=== PATIENT | male | born 1980 | race Caucasian/White ===

== ENCOUNTER 2018-08-02 19:53 | Observation (INO) ==
[2018-08-02] MEDS ORDERED: Ondansetron 4 MG/2 ML VIAL IVP ONE ×2 (20:30→22:31)
[2018-08-02] MEDS ORDERED: Isovue-370 500 ML BOTTLE IVP ONE (20:30)
[2018-08-02] MEDS ORDERED: Ketorolac 30 MG/ML VIAL IVP ONE (20:30)
[2018-08-02] MEDS ORDERED: 0.9 % Sodium Chloride 1,000 ML IVC ONE ×2 (20:30→22:31)
[2018-08-02 20:54] LABS: Basophils % 0.2 %; Eosinophils # 0.1 K/mcL (0.0-0.6); Eosinophils % 0.6 %; Hematocrit 49.1 % (37.5-50.1); Hemoglobin 16.2 g/dL (12.9-16.9); Immature Granulocytes % 0.2 % (0-4); Lymphocytes # 1.4 K/mcL (0.6-4.6); Lymphocytes % 16.7 %; Mean Corpuscular Hemoglobin 28.8 pg (28.0-33.3); Mean Corpuscular Volume 87.4 fL (83.0-100.0); Mean Platelet Volume 8.9 fL (9.4-12.4); Monocytes # 0.9 K/mcL (0.0-1.3); Monocytes % 10.8 %; Neutrophils # 5.8 K/mcL (1.6-8.9); Platelet Count 287 K/mcL (140-400); Red Blood Count 5.62 M/mcL (4.19-5.50); Red Cell Distribution Width 13.3 % (11.5-14.5); Segmented Neutrophils % 71.5 %
--- NOTE | 2018-08-02 20:58 | Emergency Department Note ---
Disposition Clinical Impression: Abdominal pain Qualifiers: Abdominal location: periumbilical Qualified Code(s): R10.33 - Periumbilical pain Disposition: Admitted As Inpatient Condition: Fair Forms: ED Satisfaction Letter, Work/School Release Abdominal Pain HPI - General Chief Complaint: ED General Medical Stated Complaint: body aches x3 days Time Seen by Provider: 08/02/18 20:18 Source: patient Mode of arrival: private vehicle Limitations: no limitations Nursing Notes Reviewed: Yes Vital Signs Reviewed: Yes - History of Present Illness Pt Subjective Complaint: abdominal pain, other (fever, achey all over, no appetite) Onset (ago): day(s) (3) Consistency: constant, Worsening Location: periumbilical Pain Severity: moderate Pain Scale: 8 Quality: cramping, aching, sharp Radiation: none Migration to: other (sometimes into back) Improves with: nothing Worsens with: eating Context: other (fever and body aches 3 days ago, abd pain began day 2. Fever and aches continue. No appetite. ) Associated symptoms: Reports: fever, chills, anorexia. Denies: nausea, vomiting, diarrhea, constipation, dysuria, hematemesis, hematochezia, melena, hematuria, syncope Treatments prior to arrival: none - Related Data Home Medications Medication Instructions Recorded Confirmed No Known Home Drugs 08/02/18 08/02/18 Allergies Allergy/AdvReac Type Severity Reaction Status Date / Time No Known Allergies Allergy Verified 08/02/18 19:56 All systems ED: reviewed and negative except as stated. Review of Systems: As Per HPI Constitutional: Denies: fever, chills, weakness, weight change, night sweats Eyes: Denies: eye pain, eye discharge, vision change ENT ED: Denies: ear pain, throat pain, congestion, dysphagia Cardiovascular: Denies: chest pain, palpitations, dyspnea on exertion, orthopnea Respiratory: Denies: cough, dyspnea, wheezes Gastrointestinal: Reports: as per HPI, abdominal pain. Denies: nausea, vomiting, diarrhea, constipation, hematemesis, melena, hematochezia Genitourinary: Denies: urgency, dysuria, frequency, hematuria, discharge, testicular pain Musculoskeletal: Reports: as per HPI, back pain. Denies: neck pain, joint swelling, arthralgia, myalgia Integumentary: Denies: rash, lesions Neurological: Denies: headache, weakness, numbness, paresthesias, confusion, vertigo Hematological/Lymphatic: Denies: easy bleeding, easy bruising, lymphadenopathy Abdominal Pain PMH - Past Medical History Medical history: Reports: no medical history Male Surgical History: Reports: non-contributory, other Psychiatric history: Reports: no psych history - Social History Smoking status: Current every day smoker Alcohol use: Reports: none Drug use: Reports: none Physical Exam - General Limitations: no limitations General appearance: alert, in no apparent distress - Head Head exam: atraumatic, normocephalic, normal inspection - Eye Eye exam: Present: normal appearance, PERRL. Absent: scleral icterus, conjunctival injection, periorbital swelling - ENT ENT exam: mucous membranes dry - Neck Neck exam: Present: normal inspection, full ROM, trachea midline. Absent: tenderness, meningismus, lymphadenopathy - Chest Chest inspection: Present: normal inspection - Respiratory Respiratory exam: Present: normal lung sounds bilaterally. Absent: respiratory distress, wheezes, stridor, accessory muscle use - Cardiovascular Cardiovascular exam: Present: regular rate, normal rhythm, normal heart sounds - Abdominal Exam Abdominal exam: Present: soft, tenderness, rebound, normal bowel sounds, tenderness at McBurney's Point. Absent: distention, guarding, rigidity, organomegaly, Menjivar's sign, Rovsing's sign, ascites, mass, bruit, pulsatile mass, hernia Abdominal tenderness: Present: RLQ (and periumbilical) - Extremities Exam Extremities exam: Present: normal inspection, normal capillary refill - Neurological Exam Neurological exam: Present: alert, oriented X3, CN II-XII intact, normal gait - Psychiatric Psychiatric exam: Present: normal affect, normal mood - Skin Skin exam: Present: warm, dry, intact, normal color Course Course Narrative: Patient to ED for eval of fever, malaise, abdominal pain and anorexia. Symptoms times 3 days. No urinary or bowel complaints. No recent travel or known ill contacts. On exam patient appears uncomfortable but non-toxic. Vitals are normal. Airway and lungs clear, heart sounds normal - no murmur. Abd is soft but tender with guarding in the RLQ. Bowel sounds normal. LAbs, fluids, meds and CT ordered. Labs normal. Pain better and patient is sleeping. Awakens to verbal stimulus. CT looks abnormal. Waiting for the read. Case discussed with Dr. Ballard. She has seen the CT and states that she will admit the patient. Pain is now back. Additional meds ordered. Case discussed with Dr. Galicia. She has had face to face time with the patient and agrees with the assessment and plan. - Consultations Consultation #1: case discussed with Radiologist. He called to see if the patient has had an appendectomy. (Patient has not had any surgeries) He states that the CT shows a lot of free fluid and a lot of fluid filled loops of bowel. As we were discussing the patient's presentation, he states that he is now able to see the appendix and it looks normal. Time: 22:00 Consultation #2: Surgicalist paged Time: 22:10 Vital Signs Temperature 97.7 F 08/02/18 19:56 Pulse Rate 88 08/02/18 19:56 Respiratory Rate 16 08/02/18 19:56 Blood Pressure 116/75 08/02/18 19:56 O2 Sat by Pulse Oximetry 97 08/02/18 19:56 Temperature 98.7 F 08/02/18 20:59 Pulse Rate 80 08/02/18 20:59 Respiratory Rate 18 08/02/18 20:59 Blood Pressure 96/57 08/02/18 20:59 O2 Sat by Pulse Oximetry 98 08/02/18 20:59 Oxygen Delivery Oxygen Delivery Room Air Abdominal Pain - Medical Records Medical records reviewed: Yes I reviewed the patient's medical records. - Lab Data Lab results reviewed: Yes I reviewed the patient's lab results. Lab results narrative: Laboratory Last Values WBC 8.2 K/mcL (4.3-11.1) 08/02/18 20:30 RBC 5.62 M/mcL (4.19-5.50) H 08/02/18 20:30 Hgb 16.2 g/dL (12.9-16.9) 08/02/18 20:30 Hct 49.1 % (37.5-50.1) 08/02/18 20:30 MCV 87.4 fL (83.0-100.0) 08/02/18 20:30 MCH 28.8 pg (28.0-33.3) 08/02/18 20:30 MCHC 33.0 g/dL (31.6-35.5) 08/02/18 20:30 RDW 13.3 % (11.5-14.5) 08/02/18 20:30 Plt Count 287 K/mcL (140-400) 08/02/18 20:30 MPV 8.9 fL (9.4-12.4) L 08/02/18 20:30 Immature Gran % 0.2 % (0-4) 08/02/18 20: Seg Neutrophils % 71.5 % 08/02/18 20:30 Lymphocytes % 16.7 % 08/02/18 20: Monocytes % 10.8 % 08/02/18 20:30 Eosinophils % 0.6 % 08/02/18 20: Basophils % 0.2 % 08/02/18 20:30 Neutrophils # 5.8 K/mcL (1.6-8.9) 08/02/18 20:30 Lymphocytes # 1.4 K/mcL (0.6-4.6) 08/02/18 20: Monocytes # 0.9 K/mcL (0.0-1.3) 08/02/18 20: Eosinophils # 0.1 K/mcL (0.0-0.6) 08/02/18 20: Basophils # 0.0 K/mcL (0.0-0.2) 08/02/18 20:30 Sodium 133 mEq/L (136-145) L 08/02/18 20:30 Potassium 3.7 mEq/L (3.5-5.1) 08/02/18 20:30 Chloride 100 mEq/L (98-107) 08/02/18 20: Carbon Dioxide 28 mEq/L (23-29) 08/02/18 20:30 BUN 16 mg/dL (6-20) 08/02/18 20:30 Creatinine 0.93 mg/dL (0.70-1.30) 08/02/18 20:30 Est GFR ( Amer) > 60 (> 60) 08/02/18 20:30 Est GFR (Non-Af Amer) > 60 (> 60) 08/02/18 20:30 BUN/Creatinine Ratio 17 (6-26) 08/02/18 20: Glucose 109 mg/dL (70-105) H 08/02/18 20:30 Calculated Osmolality 278 (280-300) L 08/02/18 20:30 Lactic Acid 0.9 mmol/L (0.5-2.2) 08/02/18 20:38 Calcium 8.8 mg/dL (8.6-10.3) 08/02/18 20:30 Total Bilirubin 0.4 mg/dL (0.3-1.0) 08/02/18 20:30 Direct Bilirubin 0.1 mg/dL (0.0-0.2) 08/02/18 20:30 Indirect Bilirubin 0.3 mg/dL (0.0-1.2) 08/02/18 20:30 AST 24 Units/L (13-39) 08/02/18 20:30 ALT 32 Units/L (7-52) 08/02/18 20:30 Alkaline Phosphatase 57 Units/L (34-104) 08/02/18 20:30 Serum Total Protein 7.0 g/dL (6.4-8.9) 08/02/18 20:30 Albumin 3.9 g/dL (3.5-5.7) 08/02/18 20:30 Globulin 3.1 g/dL (2.4-3.5) 08/02/18 20:30 Albumin/Globulin Ratio 1.3 (1.1-2.2) 08/02/18 20:30 Lipase 25 Units/L (11-82) 08/02/18 20:30 Urine Color Yellow (Yellow) 08/02/18 21:00 Urine Clarity Clear (Clear) 08/02/18 21:00 Urine pH 5.5 pH Units (5.0-8.0) 08/02/18 21:00 Ur Specific [place] 1.029 (1.010-1.025) H 08/02/18 21:00 Urine Protein 30 mg/dL (Neg-Trace) H 08/02/18 21:00 Urine Glucose (UA) Normal mg/dL (Normal) 08/02/18 21:00 Urine Ketones Negative mg/dL (Negative) 08/02/18 21:00 Urine Blood Negative (Negative) 08/02/18 21:00 Urine Nitrite Negative (Negative) 08/02/18 21:00 Urine Bilirubin Small (Negative) H 08/02/18 21:00 Urine Urobilinogen Normal mg/dL (Normal) 08/02/18 21:00 Ur Leukocyte Esterase Negative (Negative) 08/02/18 21:00 Urine Microscopic WBC 0-3 per hpf (0-3) 08/02/18 21:00 Ur Squamous Epith Cells Many per lpf (None-Few) H 08/02/18 21:00 Urine Bacteria Few per hpf (None-Few) 08/02/18 21:00 Hyaline Casts None Seen per lpf (None-Few) 08/02/18 21:00 Urine Mucus Many (Few) H 08/02/18 21:00 Ur Culture Indicated? NO (NO) 08/02/18 21:00 Result diagrams: 08/02/18 20:30 08/02/18 20:30 Lab Results 08/02/18 08/02/18 08/02/18 Range/Units 20:30 20:30 20:38 WBC 8.2 (4.3-11.1) K/mcL RBC 5.62 H (4.19-5.50) M/mcL Hgb 16.2 (12.9-16.9) g/dL Hct 49.1 (37.5-50.1) % MCV 87.4 (83.0-100.0) fL MCH 28.8 (28.0-33.3) pg MCHC 33.0 (31.6-35.5) g/dL RDW 13.3 (11.5-14.5) % Plt Count 287 (140-400) K/mcL MPV 8.9 L (9.4-12.4) fL Immature Gran % 0.2 (0-4) % Seg Neutrophils % 71.5 % Lymphocytes % 16.7 % Monocytes % 10.8 % Eosinophils % 0.6 % Basophils % 0.2 % Neutrophils # 5.8 (1.6-8.9) K/mcL Lymphocytes # 1.4 (0.6-4.6) K/mcL Monocytes # 0.9 (0.0-1.3) K/mcL Eosinophils # 0.1 (0.0-0.6) K/mcL Basophils # 0.0 (0.0-0.2) K/mcL Sodium 133 L (136-145) mEq/L Potassium 3.7 (3.5-5.1) mEq/L Chloride 100 (98-107) mEq/L Carbon Dioxide 28 (23-29) mEq/L BUN 16 (6-20) mg/dL Creatinine 0.93 (0.70-1.30) mg/dL Est GFR ( Amer) > 60 (> 60) Est GFR (Non-Af Amer) > 60 (> 60) BUN/Creatinine Ratio 17 (6-26) Glucose 109 H (70-105) mg/dL Calculated Osmolality 278 L (280-300) Lactic Acid 0.9 (0.5-2.2) mmol/L Calcium 8.8 (8.6-10.3) mg/dL Total Bilirubin 0.4 (0.3-1.0) mg/dL Direct Bilirubin 0.1 (0.0-0.2) mg/dL Indirect Bilirubin 0.3 (0.0-1.2) mg/dL AST 24 (13-39) Units/L ALT 32 (7-52) Units/L Alkaline Phosphatase 57 (34-104) Units/L Serum Total Protein 7.0 (6.4-8.9) g/dL Albumin 3.9 (3.5-5.7) g/dL Globulin 3.1 (2.4-3.5) g/dL Albumin/Globulin Ratio 1.3 (1.1-2.2) Lipase 25 (11-82) Units/L Urine Color (Yellow) Urine Clarity (Clear) Urine pH (5.0-8.0) pH Units Ur Specific [place] (1.010-1.025) Urine Protein (Neg-Trace) mg/dL Urine Glucose (UA) (Normal) mg/dL Urine Ketones (Negative) mg/dL Urine Blood (Negative) Urine Nitrite (Negative) Urine Bilirubin (Negative) Urine Urobilinogen (Normal) mg/dL Ur Leukocyte Esterase (Negative) Urine Microscopic WBC (0-3) per hpf Ur Squamous Epith Cells (None-Few) per lpf Urine Bacteria (None-Few) per hpf Hyaline Casts (None-Few) per lpf Urine Mucus (Few) Ur Culture Indicated? (NO) 08/02/18 Range/Units 21:00 WBC (4.3-11.1) K/mcL RBC (4.19-5.50) M/mcL Hgb (12.9-16.9) g/dL Hct (37.5-50.1) % MCV (83.0-100.0) fL MCH (28.0-33.3) pg MCHC (31.6-35.5) g/dL RDW (11.5-14.5) % Plt Count (140-400) K/mcL MPV (9.4-12.4) fL Immature Gran % (0-4) % Seg Neutrophils % % Lymphocytes % % Monocytes % % Eosinophils % % Basophils % % Neutrophils # (1.6-8.9) K/mcL Lymphocytes # (0.6-4.6) K/mcL Monocytes # (0.0-1.3) K/mcL Eosinophils # (0.0-0.6) K/mcL Basophils # (0.0-0.2) K/mcL Sodium (136-145) mEq/L Potassium (3.5-5.1) mEq/L Chloride (98-107) mEq/L Carbon Dioxide (23-29) mEq/L BUN (6-20) mg/dL Creatinine (0.70-1.30) mg/dL Est GFR ( Amer) (> 60) Est GFR (Non-Af Amer) (> 60) BUN/Creatinine Ratio (6-26) Glucose (70-105) mg/dL Calculated Osmolality (280-300) Lactic Acid (0.5-2.2) mmol/L Calcium (8.6-10.3) mg/dL Total Bilirubin (0.3-1.0) mg/dL Direct Bilirubin (0.0-0.2) mg/dL Indirect Bilirubin (0.0-1.2) mg/dL AST (13-39) Units/L ALT (7-52) Units/L Alkaline Phosphatase (34-104) Units/L Serum Total Protein (6.4-8.9) g/dL Albumin (3.5-5.7) g/dL Globulin (2.4-3.5) g/dL Albumin/Globulin Ratio (1.1-2.2) Lipase (11-82) Units/L Urine Color Yellow (Yellow) Urine Clarity Clear (Clear) Urine pH 5.5 (5.0-8.0) pH Units Ur Specific [place] 1.029 H (1.010-1.025) Urine Protein 30 H (Neg-Trace) mg/dL Urine Glucose (UA) Normal (Normal) mg/dL Urine Ketones Negative (Negative) mg/dL Urine Blood Negative (Negative) Urine Nitrite Negative (Negative) Urine Bilirubin Small H (Negative) Urine Urobilinogen Normal (Normal) mg/dL Ur Leukocyte Esterase Negative (Negative) Urine Microscopic WBC 0-3 (0-3) per hpf Ur Squamous Epith Cells Many H (None-Few) per lpf Urine Bacteria Few (None-Few) per hpf Hyaline Casts None Seen (None-Few) per lpf Urine Mucus Many H (Few) Ur Culture Indicated? NO (NO) - Radiology Data Radiology results reviewed: Yes I reviewed the patient's radiology results. Abdomen/Pelvis CT 08/02/18 20:30 IMPRESSION: 1. Diffuse fluid distention of small bowel throughout the abdomen. Findings may reflect a gastroenteritis, correlate for signs or symptoms. Early partial small-bowel obstruction cannot be entirely excluded. 2. Mild perihepatic ascites and small amount of free fluid noted in the pelvis, possibly reactive in nature. Correlate with liver function testing. 3. The appendix is identified and appears normal in caliber without evidence of significant periappendiceal inflammatory change. Please see body of report for details. 4. Nonspecific subcentimeter mesenteric lymph nodes, likely reactive in nature. Results were called by Dr. Qamar Reyna to Jessy Montalvo on 08/02/2018 at 22:07. D/ / Qamar Reyna / Qamar Reyna Interpreting Provider: Qamar Reyna
[2018-08-02 21:08] LABS: Alanine Aminotransferase 32 Units/L (7-52); Albumin 3.9 g/dL (3.5-5.7); Albumin/Globulin Ratio 1.3 (1.1-2.2); Alkaline Phosphatase 57 Units/L (34-104); Aspartate Amino Transferase 24 Units/L (13-39); BUN/Creatinine Ratio 17 (6-26); Bilirubin,Direct 0.1 mg/dL (0.0-0.2); Bilirubin,Indirect 0.3 mg/dL (0.0-1.2); Bilirubin,Total 0.4 mg/dL (0.3-1.0); Blood Urea Nitrogen 16 mg/dL (6-20); Calcium 8.8 mg/dL (8.6-10.3); Carbon Dioxide 28 mEq/L (23-29); Chloride 100 mEq/L (98-107); Globulin 3.1 g/dL (2.4-3.5); Glucose 109 mg/dL (70-105); Lipase 25 Units/L (11-82); Osmolality,Calculated 278 (280-300); Potassium 3.7 mEq/L (3.5-5.1); Sodium 133 mEq/L (136-145); eGFR For Non-African Americans > 60 (> 60)
[2018-08-02 21:12] LABS: Bilirubin,Urine Small (Negative); Blood,Urine Negative (Negative); Clarity,Urine Clear (Clear); Color,Urine Yellow (Yellow); Glucose,Urine (UA) Normal (Normal); Ketones,Urine Negative (Negative); Leukocyte Esterase,Urine Negative (Negative); Nitrite,Urine Negative (Negative); PH,Urine 5.5 pH Units (5.0-8.0); Protein,Urine 30 mg/dL (Neg-Trace); Specific Gravity,Urine 1.029 (1.010-1.025); Urobilinogen,Urine Normal (Normal)
[2018-08-02 21:29] LABS: Hyaline Casts,Urine None Seen per lpf (None-Few); Squamous Epithelial Cell,Urine Many per lpf (None-Few); WBC,Urine 0-3 per hpf (0-3)
[2018-08-02 21:30] LABS: Bacteria,Urine Few per hpf (None-Few); Mucus,Urine Many (Few)
[2018-08-02] MEDS ORDERED: Piperacillin/Tazobactam 3.375 GM in 0.9 % Sodium Chloride Mini Bag 100 ML IVPB ONE (22:13)
--- NOTE | 2018-08-02 22:26 | Acute Care Surgery H&P ---
Date of Encounter: 08/02/18 Time of Encounter: 22:25 Assessment and Plan (1) Acute appendicitis with generalized peritonitis Current Visit: Yes Status: Acute The assessment and plan as outlined above was discussed with the patient and/or family members who expressed understanding and agreement. All questions were answered. Recommend diagnostic laparoscopy with appendectomy or possible open surgery. Procedure, risks and benefits of surgery are discussed in great detail. Possible complications include, but, are not limited to bleeding, infection, SB injury, OH, PE/DVT, stroke or . Pt understands and wishes to proceed as advised. IV abx started. NPO. Surgery scheduled. Qualifiers: Qualified Code(s): K35.20 - Acute appendicitis with generalized peritonitis, without abscess History of Present Illness Chief complaint: abdominal pain HPI: Mr. Beckett is a 37 year old male presents to [facility] ED complaining of severe RLQ abdominal pain. He states the pain started around his belly button and has now localized to RLQ. He reports the pain has progressively worsened for 3 days. Reports no appetite. Abd hurts when delmy. +nausea, +/- vomiting. Denies BM. +fever. Past Med Surg Social Fam HX - Past Medical History Medical history: no medical history Psychiatric history: no psych history - Past Surgical History Additional surgical history: right ankle sx - Social History Smoking Status: Current every day smoker Alcohol use: none Drug use: none Medications and Allergies RX: No Known Home Drugs 08/02/18 [History] Allergy/AdvReac Type Severity Reaction Status Date / Time No Known Allergies Allergy Verified 08/02/18 19:56 Review of Systems All systems PM: The remainder of the systems were reviewed and are negative - Constitutional as per HPI, anorexia, chills, fatigue, night sweats, no fever(s), no weakness - EENT Nose, mouth and throat: dry mouth, no dizziness, no nasal congestion, no nasal discharge, no sinus pain, no sinus pressure, no sore throat - Cardiovascular no chest pain, no diaphoresis, no dyspnea, no edema - Respiratory no cough, no dyspnea, no wheezing - Gastrointestinal abdominal pain, cramping, nausea, vomiting, no bloating, no constipation, no diarrhea - Genitourinary flank pain, no dysuria, no urinary frequency - Musculoskeletal back pain - Integumentary dry skin, no pruritus, no rash, no wounds, no jaundice - Neurological no dizziness, no focal weakness, no weakness - Psychiatric no anxiety, no depression - Endocrine fatigue - Hematologic/Lymphatic no easy bleeding, no easy bruising General Surgery Exam Initial Vital Signs Temp Pulse Resp BP Pulse Ox 97.7 F 88 16 116/75 97 08/02/18 19:56 08/02/18 19:56 08/02/18 19:56 08/02/18 19:56 08/02/18 19:56 - General physical appearance moderate distress, severe pain. negative: jaundice - Eyes PERRL, normal ocular movement. negative: icteric - ENT no congestion, dry mucosa. negative: nasal discharge - Neck no masses, no lymphadectomy, no venous distension - Respiratory normal respiratory effort, clear to auscultation - Cardiovascular Cardiovascular exam: Present: RRR. Absent: murmurs - Abdomen Abdomen general surgery: Present: bowel sounds present, distended, tender, guarding, rebound - Genitourinary Present: normal penis with no external lesions - Integumentary Integumentary general surgery: Present: warm and dry - Neurologic Present: CN 2-12 grossly intact - Musculoskeletal Absent: normal posture (knees bent d/t peritonitis) - Psychiatric Psychiatric general surgery: Present: A&Ox3, appropriate Results - Labs 08/02/18 20:30 08/02/18 20:30 Abnormal lab results RBC 5.62 M/mcL (4.19-5.50) H 08/02/18 20:30 MPV 8.9 fL (9.4-12.4) L 08/02/18 20:30 Sodium 133 mEq/L (136-145) L 08/02/18 20:30 Glucose 109 mg/dL (70-105) H 08/02/18 20:30 Calculated Osmolality 278 (280-300) L 08/02/18 20:30 Ur Specific [place] 1.029 (1.010-1.025) H 08/02/18 21:00 Urine Protein 30 mg/dL (Neg-Trace) H 08/02/18 21:00 Urine Bilirubin Small (Negative) H 08/02/18 21:00 Ur Squamous Epith Cells Many per lpf (None-Few) H 08/02/18 21:00 Urine Mucus Many (Few) H 08/02/18 21:00 Diabetes panel 08/02/18 Range/Units 20:30 Sodium 133 L (136-145) mEq/L Potassium 3.7 (3.5-5.1) mEq/L Chloride 100 (98-107) mEq/L Carbon Dioxide 28 (23-29) mEq/L BUN 16 (6-20) mg/dL Creatinine 0.93 (0.70-1.30) mg/dL Glucose 109 H (70-105) mg/dL Calcium 8.8 (8.6-10.3) mg/dL AST 24 (13-39) Units/L ALT 32 (7-52) Units/L Alkaline Phosphatase 57 (34-104) Units/L Albumin 3.9 (3.5-5.7) g/dL Calcium panel 08/02/18 Range/Units 20:30 Calcium 8.8 (8.6-10.3) mg/dL Albumin 3.9 (3.5-5.7) g/dL Pituitary panel 08/02/18 Range/Units 20:30 Sodium 133 L (136-145) mEq/L Potassium 3.7 (3.5-5.1) mEq/L Chloride 100 (98-107) mEq/L Carbon Dioxide 28 (23-29) mEq/L BUN 16 (6-20) mg/dL Creatinine 0.93 (0.70-1.30) mg/dL Glucose 109 H (70-105) mg/dL Calcium 8.8 (8.6-10.3) mg/dL Adrenal panel 08/02/18 Range/Units 20:30 Sodium 133 L (136-145) mEq/L Potassium 3.7 (3.5-5.1) mEq/L Chloride 100 (98-107) mEq/L Carbon Dioxide 28 (23-29) mEq/L BUN 16 (6-20) mg/dL Creatinine 0.93 (0.70-1.30) mg/dL Glucose 109 H (70-105) mg/dL Calcium 8.8 (8.6-10.3) mg/dL Total Bilirubin 0.4 (0.3-1.0) mg/dL AST 24 (13-39) Units/L ALT 32 (7-52) Units/L Alkaline Phosphatase 57 (34-104) Units/L Albumin 3.9 (3.5-5.7) g/dL All other labs normal. - Imaging CT scan - abdomen: image reviewed CT scan - pelvis: image reviewed (large free fluid in abd)
[2018-08-02] MEDS ORDERED: *HR* HYDROmorphone (PF) 1 MG/ML SYRINGE IVP ONE (22:31)
--- NOTE | 2018-08-02 22:44 | Emergency Department Note ---
Disposition Clinical Impression: Abdominal pain Qualifiers: Abdominal location: periumbilical Qualified Code(s): R10.33 - Periumbilical pain Disposition: Admitted As Inpatient Condition: Fair Referrals: NONE,PCP [Primary Care Provider] - Forms: ED Satisfaction Letter, Work/School Release General Adult HPI - General Chief complaint: ED General Medical Stated complaint: body aches x3 days Time Seen by Provider: 08/02/18 20:18 Source: patient Mode of arrival: private vehicle Limitations: no limitations - History of Present Illness Pain Scale: 8 - Related Data Home Medications Medication Instructions Recorded Confirmed No Known Home Drugs 08/02/18 08/02/18 Allergies Allergy/AdvReac Type Severity Reaction Status Date / Time No Known Allergies Allergy Verified 08/02/18 19:56 Constitutional: Denies: fever, chills, weakness, weight change, night sweats Eyes: Denies: eye pain, eye discharge, vision change ENT ED: Denies: ear pain, throat pain, congestion, dysphagia Cardiovascular: Denies: chest pain, palpitations, dyspnea on exertion, orthopnea Respiratory: Denies: cough, dyspnea, wheezes Gastrointestinal: Reports: as per HPI, abdominal pain. Denies: nausea, vomiting, diarrhea, constipation, hematemesis, melena, hematochezia Genitourinary: Denies: urgency, dysuria, frequency, hematuria, discharge, testicular pain Musculoskeletal: Reports: as per HPI, back pain. Denies: neck pain, joint swelling, arthralgia, myalgia Integumentary: Denies: rash, lesions Neurological: Denies: headache, weakness, numbness, paresthesias, confusion, vertigo Hematological/Lymphatic: Denies: easy bleeding, easy bruising, lymphadenopathy Past Medical History - Past Medical History Medical history: Reports: no medical history Psychiatric history: Reports: no psych history - Social History Smoking Status: Current every day smoker Alcohol use: Reports: none Drug use: Reports: none Physical Exam - General Limitations: no limitations General appearance: alert, in no apparent distress Course Vital Signs Temperature 97.7 F 08/02/18 19:56 Pulse Rate 88 08/02/18 19:56 Respiratory Rate 16 08/02/18 19:56 Blood Pressure 116/75 08/02/18 19:56 O2 Sat by Pulse Oximetry 97 08/02/18 19:56 Temperature 99.2 F 08/02/18 22:21 Pulse Rate 73 08/02/18 22:21 Respiratory Rate 18 08/02/18 22:21 Blood Pressure 131/83 08/02/18 22:21 O2 Sat by Pulse Oximetry 97 08/02/18 22:21 Oxygen Delivery Oxygen Delivery Room Air Medical Decision Making - Lab Data Result diagrams: 08/02/18 20:30 08/02/18 20:30 Lab Results 08/02/18 08/02/18 08/02/18 Range/Units 20:30 20:30 20:38 WBC 8.2 (4.3-11.1) K/mcL RBC 5.62 H (4.19-5.50) M/mcL Hgb 16.2 (12.9-16.9) g/dL Hct 49.1 (37.5-50.1) % MCV 87.4 (83.0-100.0) fL MCH 28.8 (28.0-33.3) pg MCHC 33.0 (31.6-35.5) g/dL RDW 13.3 (11.5-14.5) % Plt Count 287 (140-400) K/mcL MPV 8.9 L (9.4-12.4) fL Immature Gran % 0.2 (0-4) % Seg Neutrophils % 71.5 % Lymphocytes % 16.7 % Monocytes % 10.8 % Eosinophils % 0.6 % Basophils % 0.2 % Neutrophils # 5.8 (1.6-8.9) K/mcL Lymphocytes # 1.4 (0.6-4.6) K/mcL Monocytes # 0.9 (0.0-1.3) K/mcL Eosinophils # 0.1 (0.0-0.6) K/mcL Basophils # 0.0 (0.0-0.2) K/mcL Sodium 133 L (136-145) mEq/L Potassium 3.7 (3.5-5.1) mEq/L Chloride 100 (98-107) mEq/L Carbon Dioxide 28 (23-29) mEq/L BUN 16 (6-20) mg/dL Creatinine 0.93 (0.70-1.30) mg/dL Est GFR ( Amer) > 60 (> 60) Est GFR (Non-Af Amer) > 60 (> 60) BUN/Creatinine Ratio 17 (6-26) Glucose 109 H (70-105) mg/dL Calculated Osmolality 278 L (280-300) Lactic Acid 0.9 (0.5-2.2) mmol/L Calcium 8.8 (8.6-10.3) mg/dL Total Bilirubin 0.4 (0.3-1.0) mg/dL Direct Bilirubin 0.1 (0.0-0.2) mg/dL Indirect Bilirubin 0.3 (0.0-1.2) mg/dL AST 24 (13-39) Units/L ALT 32 (7-52) Units/L Alkaline Phosphatase 57 (34-104) Units/L Serum Total Protein 7.0 (6.4-8.9) g/dL Albumin 3.9 (3.5-5.7) g/dL Globulin 3.1 (2.4-3.5) g/dL Albumin/Globulin Ratio 1.3 (1.1-2.2) Lipase 25 (11-82) Units/L Urine Color (Yellow) Urine Clarity (Clear) Urine pH (5.0-8.0) pH Units Ur Specific [place] (1.010-1.025) Urine Protein (Neg-Trace) mg/dL Urine Glucose (UA) (Normal) mg/dL Urine Ketones (Negative) mg/dL Urine Blood (Negative) Urine Nitrite (Negative) Urine Bilirubin (Negative) Urine Urobilinogen (Normal) mg/dL Ur Leukocyte Esterase (Negative) Urine Microscopic WBC (0-3) per hpf Ur Squamous Epith Cells (None-Few) per lpf Urine Bacteria (None-Few) per hpf Hyaline Casts (None-Few) per lpf Urine Mucus (Few) Ur Culture Indicated? (NO) 08/02/18 Range/Units 21:00 WBC (4.3-11.1) K/mcL RBC (4.19-5.50) M/mcL Hgb (12.9-16.9) g/dL Hct (37.5-50.1) % MCV (83.0-100.0) fL MCH (28.0-33.3) pg MCHC (31.6-35.5) g/dL RDW (11.5-14.5) % Plt Count (140-400) K/mcL MPV (9.4-12.4) fL Immature Gran % (0-4) % Seg Neutrophils % % Lymphocytes % % Monocytes % % Eosinophils % % Basophils % % Neutrophils # (1.6-8.9) K/mcL Lymphocytes # (0.6-4.6) K/mcL Monocytes # (0.0-1.3) K/mcL Eosinophils # (0.0-0.6) K/mcL Basophils # (0.0-0.2) K/mcL Sodium (136-145) mEq/L Potassium (3.5-5.1) mEq/L Chloride (98-107) mEq/L Carbon Dioxide (23-29) mEq/L BUN (6-20) mg/dL Creatinine (0.70-1.30) mg/dL Est GFR ( Amer) (> 60) Est GFR (Non-Af Amer) (> 60) BUN/Creatinine Ratio (6-26) Glucose (70-105) mg/dL Calculated Osmolality (280-300) Lactic Acid (0.5-2.2) mmol/L Calcium (8.6-10.3) mg/dL Total Bilirubin (0.3-1.0) mg/dL Direct Bilirubin (0.0-0.2) mg/dL Indirect Bilirubin (0.0-1.2) mg/dL AST (13-39) Units/L ALT (7-52) Units/L Alkaline Phosphatase (34-104) Units/L Serum Total Protein (6.4-8.9) g/dL Albumin (3.5-5.7) g/dL Globulin (2.4-3.5) g/dL Albumin/Globulin Ratio (1.1-2.2) Lipase (11-82) Units/L Urine Color Yellow (Yellow) Urine Clarity Clear (Clear) Urine pH 5.5 (5.0-8.0) pH Units Ur Specific [place] 1.029 H (1.010-1.025) Urine Protein 30 H (Neg-Trace) mg/dL Urine Glucose (UA) Normal (Normal) mg/dL Urine Ketones Negative (Negative) mg/dL Urine Blood Negative (Negative) Urine Nitrite Negative (Negative) Urine Bilirubin Small H (Negative) Urine Urobilinogen Normal (Normal) mg/dL Ur Leukocyte Esterase Negative (Negative) Urine Microscopic WBC 0-3 (0-3) per hpf Ur Squamous Epith Cells Many H (None-Few) per lpf Urine Bacteria Few (None-Few) per hpf Hyaline Casts None Seen (None-Few) per lpf Urine Mucus Many H (Few) Ur Culture Indicated? NO (NO) Attestation Statement - Attestation Attestation: For this encounter, I have reviewed the [employer] or PA documentation, treatment plan, and medical decision making; and I have had face to face time with this patient. Patient to the ED with a chief complaint of fever and abdominal pain. Onset 2 days ago. Patient has a diffusely tender abdomen with guarding. Plan. CT showed gastritis versus an early small bowel instruction. Patient has extremely tender abdomen. IV antibiotics and admit. Surgical consult. Abdomen/Pelvis CT 08/02/18 20:30 IMPRESSION: 1. Diffuse fluid distention of small bowel throughout the abdomen. Findings may reflect a gastroenteritis, correlate for signs or symptoms. Early partial small-bowel obstruction cannot be entirely excluded. 2. Mild perihepatic ascites and small amount of free fluid noted in the pelvis, possibly reactive in nature. Correlate with liver function testing. 3. The appendix is identified and appears normal in caliber without evidence of significant periappendiceal inflammatory change. Please see body of report for details. 4. Nonspecific subcentimeter mesenteric lymph nodes, likely reactive in nature. Results were called by Dr. Qamar Reyna to Jessy Montalvo on 08/02/2018 at 22:07. D/ / Qamar Reyna / Qamar Reyna Interpreting Provider: Qamar Reyna
--- NOTE | 2018-08-03 02:26 | Anesthesia Evaluation PreOp ---
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 HX Other Medical History: Denies Any Significant HX Alcohol Use: none Drug use: none Medications and Allergies No Known Home Drugs 08/02/18 [History] Allergy/AdvReac Type Severity Reaction Status Date / Time No Known Allergies Allergy Verified 08/02/18 19:56 - Meds/Allergy Pre-op Review Medications Reviewed: Yes Allergies Reviewed: Yes Anesthesia Results - Labs 08/02/18 20:30 08/02/18 20:30 Anesthesia Exam Vital Signs/O2 Sat/Glucose, Most Recent Temp Pulse Resp BP Pulse Ox 98.0 F 61 15 111/67 95 08/02/18 23:26 08/02/18 23:26 08/02/18 23:26 08/02/18 23:26 08/02/18 23:26 Weight: 81 KG - BMI 28 NPO (# of Hours): >08/02 - HEENT Mallampati: I (BEARDED) Teeth: Normal Oral Opening: Greater than 3 - Cardiac Rhythm: Regular - Pulmonary Breath Sounds: bilateral Clear Respiratory Effort: Symmetrical Anesthesia Assess/Plan ASA Score: 2, E Anesthetic Plan: General Monitoring Plan: Standard Monitors Recovery Plan: PACU
[2018-08-03] MEDS ORDERED: *HR* HYDROMORPHONE 2 MG/ML VIAL ONE ×2 (03:12→05:00)
[2018-08-03] MEDS ORDERED: *HR* Propofol 200 MG/20 ML VIAL IVP ONE (03:12)
[2018-08-03] MEDS ORDERED: Ondansetron 4 MG/2 ML VIAL ONE (03:16)
[2018-08-03] MEDS ORDERED: Dexamethasone 4 MG/ML VIAL ONE (03:16)
[2018-08-03] MEDS ORDERED: *HR* Succinylcholine 200 MG/10 ML VIAL IVP ONE (03:16)
[2018-08-03] MEDS ORDERED: Lidocaine -MPF 2% 2 ML VIAL ONE (03:16)
[2018-08-03] MEDS ORDERED: *HR* Rocuronium Bromide 50 MG/5 ML VIAL ONE (03:16)
[2018-08-03] MEDS ORDERED: Ondansetron 4 MG/2 ML VIAL IVP ONE (03:40)
[2018-08-03] MEDS ORDERED: *HR* HYDROmorphone (PF) 1 MG/ML SYRINGE IVP PRN (03:40)
[2018-08-03] MEDS ORDERED: *HR* OxyCODONE Immed Rel 5 MG TABLET PO PRN ×2 (03:40→07:39)
[2018-08-03] MEDS ORDERED: Albuterol 2.5 MG/3 ML NEBULIZER IH ONE ×2 (03:40→07:39)
[2018-08-03] MEDS ORDERED: *HR* Meperidine 25 MG/ML SYRINGE IVP PRN (03:40)
[2018-08-03] MEDS ORDERED: *HR* Promethazine 25 MG/ML VIAL IVP PRN (03:40)
[2018-08-03] MEDS ORDERED: Acetaminophen IV 1,000 MG/100 ML INFUS..BTL ONE (03:48)
[2018-08-03] MEDS ORDERED: Ketorolac 30 MG/ML VIAL ONE (04:32)
[2018-08-03] MEDS ORDERED: Neostigmine Methylsulfate 3 MG/3 ML SYRINGE ONE (05:09)
--- NOTE | 2018-08-03 05:24 | Operative Note ---
Date of procedure: 08/03/18 Pre-op diagnosis: acute appendicitis Post-op diagnosis: same Procedure: laparoscopic appendectomy Anesthesia: GETA Surgeon: Megan Sanchez Was there an pharmacy assistant present: No Estimated blood loss (cc): 25 Specimen: appendix Condition: stable Disposition: PACU Procedure in Detail: This 37 year-old was taken to the operating room and placed in supine position. Anterior abdominal wall was prepped and draped in the usual sterile fashion. A 2 cm curvilinear incision is made in the infraumbilical area and subcutaneous tissues are dissected to the anterior rectus fascia. Fascia was grasped with a Mustapha clamp and elevated. The fascia was divided. Posterior rectus fascia and peritoneum were elevated and divided in the same manner. A postoperative inserted and pneumoperitoneum was achieved. The patient is rotated to the left. Under direct visualization after the injection of 0.5% Marcaine a 5 mm port is inserted in suprapubic area and a 10-12 mm port is inserted in the left lower quadrant. Exploration of the intra-abdominal cavity reveals an acutely inflamed appendix. The appendix is grasped at the tip and elevated. The base of the appendix is identified. A rent was made in the mesoappendix near the base and a linear KRIS stapling devices stapled across the appendix at its base. White vascular reload was then used to staple across the mesoappendix. The appendix is removed from the intra-abdominal cavity using an Endo Catch bag. Copious irrigation was carried out in the right pericolic gutter Galan's pouch and pelvis. The fascia at the left lower quadrant port site is closed using 0 Vicryl sutures in an endo-closure device. The pneumoperitoneum was allowed to escape. All ports are removed under direct visualization. Fascia at the infraumbilical incision was closed using 0 Vicryl suture. All skin incisions are closed using 4-0 Monocryl subcuticular stitches. Steri-Strips are placed. Sterile Band-Aids were placed. Patient tolerated procedure well was taken to PACU in good condition.
[2018-08-03] MEDS ORDERED: Ipratropium/Albuterol Neb 3 ML IH ONE (05:41)
[2018-08-03] MEDS ORDERED: Ipratropium/Albuterol Neb 3 ML ONE (05:41)
--- NOTE | 2018-08-03 05:49 | Anesthesia Evaluation Post Op ---
Date of Encounter: 08/03/18 Time of Encounter: 06:03 - Discharge PostOp Status: Transfer Patient to floor (Patient's vital signs have been reviewed. Patient is stable postoperatively and has adequately recovered from anesthesia. Patient is determined to have stable airway patency and respiratory function including respiratory rate and oxygen saturation. Patient has a stable heart rate, blood pressure and adequate hydration. Patients mental status is acceptable. Patients temperature is appropriate. Pain and nausea are adequately controlled.)
[2018-08-03 06:39] VITALS: BP 91/51
[2018-08-03] MEDS ORDERED: Ondansetron 4 MG/2 ML VIAL IVP SCH (07:39)
[2018-08-03] MEDS ORDERED: Ketorolac 15 MG/ML VIAL IVP SCH (07:39)
--- NOTE | 2018-08-03 09:16 | Discharge Summary ---
<Vonnie Wolfe - Last Filed: 08/03/18 09:38> - NOTES TO OUTPATIENT PROVIDER Notes to Outpatient Provider: Please follow up at appointment in [address] Lise Sanchez Orders not resulted at time of discharge: Pending orders 08/03/18 05:11 Surgical Pathology [PTH] Routine Date of Encounter: 08/03/18 Time of Encounter: 09:10 - Discharge Diagnosis (1) Acute appendicitis with generalized peritonitis Priority: Primary Status: Acute Qualifiers: Appendicitis gangrene presence: without gangrene Appendicitis perforation presence: unspecified whether perforation present Appendicitis abscess presence: without abscess Qualified Code(s): K35.20 - Acute appendicitis with generalized peritonitis, without abscess General Surgery Exam Initial Vital Signs Temp Pulse Resp BP Pulse Ox 97.7 F 88 16 116/75 97 08/02/18 19:56 08/02/18 19:56 08/02/18 19:56 08/02/18 19:56 08/02/18 19:56 - General physical appearance well developed, well nourished, no distress, no pain - Eyes PERRL, normal ocular movement - ENT normal mucosa - Respiratory normal expansion, normal respiratory effort, clear to auscultation - Cardiovascular Cardiovascular exam: Present: RRR, regular rhythm, no murmurs/rubs/gallops - Abdomen Abdomen general surgery: Present: bowel sounds present, soft, tender (Mild tenderness to palpation). Absent: distended - Incision Incision: Present: clean and dry, intact - Integumentary Integumentary general surgery: Present: warm and dry, no abnormal pigmentation - Neurologic Present: CN 2-12 grossly intact - Psychiatric Psychiatric general surgery: Present: A&Ox3, appropriate, oriented to person, oriented to place, oriented to time, speech is normal, memory intact - Hospital Course Hospital course: Mr. Beckett is a 37 year old male in. Past medical history who initially presented to [facility] ED complaining of severe right lower quadrant abdominal pain. Had noted that pain began around the bellybutton and localized to the right lower quadrant over the course of 3 days. Also noted decreased appetite, nausea, vomiting. On exam, patient was distended, tender, with guarding and rebound. CT of the abdomen and pelvis showed wall thickening of terminal ileum. Patient was taken to the OR by Dr. Lise Sanchez for laparoscopic appendectomy. Exploration of abdomen revealed an acutely inflamed appendix. Patient tolerated procedure without any difficulty. Seen and examined this morning. He reports no acute pain at this time. He is in no acute distress. Vitals remained hemodynamically stable. We will discharge home today. - Time Spent with Patient Total time spent providing and/or coordinating discharge services: Less than 30 minutes - Discharge Medications Prescriptions: New Docusate [Colace] 100 mg PO BID 14 Days #28 capsule RX: Ibuprofen 800 mg PO Q8H 10 Days #30 tablet OxyCODONE/APAP 5/325 [Percocet 5/325 MG] 1 each PO Q6HR PRN 3 Days #12 tablet PRN Reason: Pain Home Medications: Docusate [Colace] 100 mg PO BID 14 Days #28 capsule 08/03/18 [Rx] OxyCODONE/APAP 5/325 [Percocet 5/325 MG] 1 each PO Q6HR PRN 3 Days #12 tablet 08/03/18 [Rx] RX: Ibuprofen 800 mg PO Q8H 10 Days #30 tablet 08/03/18 [Rx] Allergies/Adverse Reactions: Allergy/AdvReac Type Severity Reaction Status Date / Time No Known Allergies Allergy Verified 08/02/18 19:56 Date of admission: 08/02/18 22:45 Primary care physician: PCP NONE Discharging clinician: Vonnie Wolfe Anticipated date of discharge: 08/03/18 Labs on day of discharge: Labs from last 24 hours 08/02/18 08/02/18 08/02/18 21:00 20:38 20:30 WBC RBC Hgb Hct MCV MCH MCHC RDW Plt Count MPV Immature Gran % Seg Neutrophils % Lymphocytes % Monocytes % Eosinophils % Basophils % Neutrophils # Lymphocytes # Monocytes # Eosinophils # Basophils # Sodium 133 L Potassium 3.7 Chloride 100 Carbon Dioxide 28 BUN 16 Creatinine 0.93 Est GFR ( Amer) > 60 Est GFR (Non-Af Amer) > 60 BUN/Creatinine Ratio 17 Glucose 109 H Calculated Osmolality 278 L Lactic Acid 0.9 Calcium 8.8 Total Bilirubin 0.4 Direct Bilirubin 0.1 Indirect Bilirubin 0.3 AST 24 ALT 32 Alkaline Phosphatase 57 Serum Total Protein 7.0 Albumin 3.9 Globulin 3.1 Albumin/Globulin Ratio 1.3 Lipase 25 Urine Color Yellow Urine Clarity Clear Urine pH 5.5 Ur Specific [place] 1.029 H Urine Protein 30 H Urine Glucose (UA) Normal Urine Ketones Negative Urine Blood Negative Urine Nitrite Negative Urine Bilirubin Small H Urine Urobilinogen Normal Ur Leukocyte Esterase Negative Urine Microscopic WBC 0-3 Ur Squamous Epith Cells Many H Urine Bacteria Few Hyaline Casts None Seen Urine Mucus Many H Ur Culture Indicated? NO 08/02/18 20:30 WBC 8.2 RBC 5.62 H Hgb 16.2 Hct 49.1 MCV 87.4 MCH 28.8 MCHC 33.0 RDW 13.3 Plt Count 287 MPV 8.9 L Immature Gran % 0.2 Seg Neutrophils % 71.5 Lymphocytes % 16.7 Monocytes % 10.8 Eosinophils % 0.6 Basophils % 0.2 Neutrophils # 5.8 Lymphocytes # 1.4 Monocytes # 0.9 Eosinophils # 0.1 Basophils # 0.0 Sodium Potassium Chloride Carbon Dioxide BUN Creatinine Est GFR ( Amer) Est GFR (Non-Af Amer) BUN/Creatinine Ratio Glucose Calculated Osmolality Lactic Acid Calcium Total Bilirubin Direct Bilirubin Indirect Bilirubin AST ALT Alkaline Phosphatase Serum Total Protein Albumin Globulin Albumin/Globulin Ratio Lipase Urine Color Urine Clarity Urine pH Ur Specific [place] Urine Protein Urine Glucose (UA) Urine Ketones Urine Blood Urine Nitrite Urine Bilirubin Urine Urobilinogen Ur Leukocyte Esterase Urine Microscopic WBC Ur Squamous Epith Cells Urine Bacteria Hyaline Casts Urine Mucus Ur Culture Indicated? - Impressions ITS Impressions Abdomen/Pelvis CT 08/02/18 20:30 IMPRESSION: 1. Diffuse fluid distention of small bowel throughout the abdomen. Findings may reflect a gastroenteritis, correlate for signs or symptoms. Early partial small-bowel obstruction cannot be entirely excluded. 2. Mild perihepatic ascites and small amount of free fluid noted in the pelvis, possibly reactive in nature. Correlate with liver function testing. 3. The appendix is identified and appears normal in caliber without evidence of significant periappendiceal inflammatory change. Please see body of report for details. 4. Nonspecific subcentimeter mesenteric lymph nodes, likely reactive in nature. Results were called by Dr. Qamar Reyna to Jessy Montalvo on 08/02/2018 at 22:07. D/ / Qamar Reyna / Qamar Reyna Interpreting Provider: Qamar Reyna - Patient Status Disposition: Home, Self-Care Condition: Good Functional capacity at discharge: independent ambulation Overall status at discharge: patient is progressing back to baseline - Discharge Instructions Instructions: Laparoscopic Appendectomy (DC) Follow Up With: Allen Yan MD [Partnered Physician] - 09/04/18 8:00 am NONE,PCP [Primary Care Provider] - Additional Instructions: General Surgical Discharge Instructions 1. No pushing, pulling, or lifting greater than 15 lbs for 2-4 weeks (depending upon procedure). 2. You may shower beginning today, but no tub baths, soaking, or swimming for 2 weeks. 3. You may resume driving when you are off narcotics and are safe to react in a car. 4. Take ibuprofen every 8 hours for discomfort. If this does not relieve discomfort, you may take the as needed Percocet. Take narcotics as directed. Do not take more narcotics then directed and do not share your narcotics with any other person. Do not drink alcohol while on narcotics. 5. Take stool softeners (Colace) or a water based laxative (Miralax) while taking narcotics. You may hold for loose stools. 6. Report any fevers greater than 100.5F, increase abdominal discomfort, drainage that looks like pus, increased redness or pain at the surgical site, or any vomiting. 7. Report any pain in the calves, shortness of breath, or rapid heartbeat. 8. Follow-up in the office as directed. 9. If you were prescribed antibiotics, do not stop them without talking to your provider. - Diet and Activity Activity: resume usual activities as tolerated Diet: advance to your usual diet <Pedro Weber - Last Filed: 08/03/18 17:10> Orders not resulted at time of discharge: Pending orders 08/03/18 05:11 Surgical Pathology [PTH] Routine Date of Encounter: 08/03/18 General Surgery Exam Initial Vital Signs Temp Pulse Resp BP Pulse Ox 97.7 F 88 16 116/75 97 08/02/18 19:56 08/02/18 19:56 08/02/18 19:56 08/02/18 19:56 08/02/18 19:56 - Hospital Course Hospital course: Mr. Beckett is a 37 year old male - Time Spent with Patient Total time spent providing and/or coordinating discharge services: Date of admission: 08/02/18 22:45 Primary care physician: PCP NONE Labs on day of discharge: Labs from last 24 hours 08/02/18 08/02/18 08/02/18 21:00 20:38 20:30 WBC RBC Hgb Hct MCV MCH MCHC RDW Plt Count MPV Immature Gran % Seg Neutrophils % Lymphocytes % Monocytes % Eosinophils % Basophils % Neutrophils # Lymphocytes # Monocytes # Eosinophils # Basophils # Sodium 133 L Potassium 3.7 Chloride 100 Carbon Dioxide 28 BUN 16 Creatinine 0.93 Est GFR ( Amer) > 60 Est GFR (Non-Af Amer) > 60 BUN/Creatinine Ratio 17 Glucose 109 H Calculated Osmolality 278 L Lactic Acid 0.9 Calcium 8.8 Total Bilirubin 0.4 Direct Bilirubin 0.1 Indirect Bilirubin 0.3 AST 24 ALT 32 Alkaline Phosphatase 57 Serum Total Protein 7.0 Albumin 3.9 Globulin 3.1 Albumin/Globulin Ratio 1.3 Lipase 25 Urine Color Yellow Urine Clarity Clear Urine pH 5.5 Ur Specific [place] 1.029 H Urine Protein 30 H Urine Glucose (UA) Normal Urine Ketones Negative Urine Blood Negative Urine Nitrite Negative Urine Bilirubin Small H Urine Urobilinogen Normal Ur Leukocyte Esterase Negative Urine Microscopic WBC 0-3 Ur Squamous Epith Cells Many H Urine Bacteria Few Hyaline Casts None Seen Urine Mucus Many H Ur Culture Indicated? NO 08/02/18 20:30 WBC 8.2 RBC 5.62 H Hgb 16.2 Hct 49.1 MCV 87.4 MCH 28.8 MCHC 33.0 RDW 13.3 Plt Count 287 MPV 8.9 L Immature Gran % 0.2 Seg Neutrophils % 71.5 Lymphocytes % 16.7 Monocytes % 10.8 Eosinophils % 0.6 Basophils % 0.2 Neutrophils # 5.8 Lymphocytes # 1.4 Monocytes # 0.9 Eosinophils # 0.1 Basophils # 0.0 Sodium Potassium Chloride Carbon Dioxide BUN Creatinine Est GFR ( Amer) Est GFR (Non-Af Amer) BUN/Creatinine Ratio Glucose Calculated Osmolality Lactic Acid Calcium Total Bilirubin Direct Bilirubin Indirect Bilirubin AST ALT Alkaline Phosphatase Serum Total Protein Albumin Globulin Albumin/Globulin Ratio Lipase Urine Color Urine Clarity Urine pH Ur Specific [place] Urine Protein Urine Glucose (UA) Urine Ketones Urine Blood Urine Nitrite Urine Bilirubin Urine Urobilinogen Ur Leukocyte Esterase Urine Microscopic WBC Ur Squamous Epith Cells Urine Bacteria Hyaline Casts Urine Mucus Ur Culture Indicated? - Impressions ITS Impressions Abdomen/Pelvis CT 08/02/18 20:30 IMPRESSION: 1. Diffuse fluid distention of small bowel throughout the abdomen. Findings may reflect a gastroenteritis, correlate for signs or symptoms. Early partial small-bowel obstruction cannot be entirely excluded. 2. Mild perihepatic ascites and small amount of free fluid noted in the pelvis, possibly reactive in nature. Correlate with liver function testing. 3. The appendix is identified and appears normal in caliber without evidence of significant periappendiceal inflammatory change. Please see body of report for details. 4. Nonspecific subcentimeter mesenteric lymph nodes, likely reactive in nature. Results were called by Dr. Qamar Reyna to Jessy Montalvo on 08/02/2018 at 22:07. D/ / Qamar Reyna / Qamar Reyna Interpreting Provider: Qamar Reyna - Attending Attestation patient seen and examined. i have reviewed all labs, imaging, and notes. i agree with the above assessment and plan.
== END 2018-08-03 09:57 | disposition home or self-care (01) ==
LOC: EMEROOARM 19:53 → 3BNU 19:53
PROVIDERS: ADMIT Surgery; ATTEND Surgery

== ENCOUNTER 2018-08-04 16:22 | Inpatient (IN) ==
[2018-08-04] MEDS ORDERED: 0.9 % Sodium Chloride 1,000 ML IVC ONE (16:29)
[2018-08-04] MEDS ORDERED: Isovue-370 500 ML BOTTLE IVP ONE (16:30)
[2018-08-04] MEDS ORDERED: Ondansetron 4 MG/2 ML VIAL IVP ONE (16:31)
[2018-08-04] MEDS ORDERED: *HR* FentaNYL (PF) 100 MCG/2 ML VIAL IVP ONE (16:31)
[2018-08-04] MEDS ORDERED: Ketorolac 15 MG/ML VIAL IVP ONE (16:31)
--- NOTE | 2018-08-04 16:33 | Emergency Department Note ---
Disposition Clinical Impression: Post-op pain, Abdominal pain, SBO (small bowel obstruction), Ileus Disposition: Admitted As Inpatient Condition: Fair General Adult HPI - General Stated complaint: post op complications Time Seen by Provider: 08/04/18 16:23 - Related Data Previous Rx's Medication Instructions Recorded Docusate [Colace] 100 mg PO BID 14 Days #28 capsule 08/03/18 OxyCODONE/APAP 5/325 [Percocet 1 each PO Q6HR PRN 3 Days #12 08/03/18 5/325 MG] tablet RX: Ibuprofen 800 mg PO Q8H 10 Days #30 tablet 08/03/18 Allergies Allergy/AdvReac Type Severity Reaction Status Date / Time No Known Allergies Allergy Verified 08/02/18 19:56 Past Medical History - Past Medical History Medical history: Reports: no medical history Psychiatric history: Reports: no psych history - Social History Smoking Status: Current every day smoker Alcohol use: Reports: none Drug use: Reports: none Course Vital Signs Temperature 99.2 F 08/04/18 16:27 Pulse Rate 79 08/04/18 16:27 Respiratory Rate 18 08/04/18 16:27 Blood Pressure 127/79 08/04/18 16:27 O2 Sat by Pulse Oximetry 98 08/04/18 16:27 Temperature 98.6 F 08/04/18 20:17 Pulse Rate 82 08/04/18 20:17 Respiratory Rate 19 08/04/18 20:17 Blood Pressure 107/66 08/04/18 20:17 O2 Sat by Pulse Oximetry 95 08/04/18 20:17 Oxygen Delivery Oxygen Delivery Room Air Medical Decision Making - Lab Data Result diagrams: 08/04/18 16:45 08/04/18 16:45 Lab Results 08/04/18 08/04/18 08/04/18 Range/Units 16:41 16:45 16:45 WBC 9.8 (4.3-11.1) K/mcL RBC 4.57 (4.19-5.50) M/mcL Hgb 13.1 D (12.9-16.9) g/dL Hct 39.7 (37.5-50.1) % MCV 86.9 (83.0-100.0) fL MCH 28.7 (28.0-33.3) pg MCHC 33.0 (31.6-35.5) g/dL RDW 13.3 (11.5-14.5) % Plt Count 278 (140-400) K/mcL MPV 9.6 (9.4-12.4) fL Immature Gran % 0.4 (0-4) % Seg Neutrophils % 75.4 % Lymphocytes % 14.1 % Monocytes % 9.4 % Eosinophils % 0.5 % Basophils % 0.2 % Neutrophils # 7.4 (1.6-8.9) K/mcL Lymphocytes # 1.4 (0.6-4.6) K/mcL Monocytes # 0.9 (0.0-1.3) K/mcL Eosinophils # 0.1 (0.0-0.6) K/mcL Basophils # 0.0 (0.0-0.2) K/mcL Clumped Platelets Few A (Not Present) Sodium 134 L (136-145) mEq/L Potassium 4.0 (3.5-5.1) mEq/L Chloride 101 (98-107) mEq/L Carbon Dioxide 25 (23-29) mEq/L BUN 10 (6-20) mg/dL Creatinine 0.71 (0.70-1.30) mg/dL Est GFR ( Amer) > 60 (> 60) Est GFR (Non-Af Amer) > 60 (> 60) BUN/Creatinine Ratio 14 (6-26) Glucose 113 H (70-105) mg/dL Calculated Osmolality 278 L (280-300) Lactic Acid 1.0 (0.5-2.2) mmol/L Calcium 8.6 (8.6-10.3) mg/dL Total Bilirubin 0.4 (0.3-1.0) mg/dL Direct Bilirubin 0.1 (0.0-0.2) mg/dL Indirect Bilirubin 0.3 (0.0-1.2) mg/dL AST 23 (13-39) Units/L ALT 24 (7-52) Units/L Alkaline Phosphatase 47 (34-104) Units/L Serum Total Protein 6.4 (6.4-8.9) g/dL Albumin 3.4 L (3.5-5.7) g/dL Globulin 3.0 (2.4-3.5) g/dL Albumin/Globulin Ratio 1.1 (1.1-2.2) Attestation Statement - Attestation Attestation: I examined this patient and my medical decision-making was reviewed with the Resident Physician. I agree with the documented findings, disposition and treatment plan as described except to the extent set forth below. [id number] time provided . Patient presents 2 days after a laparoscopic appendectomy. He notes generalized abdominal pain. He is very uncomfortable appearing on exam with diffuse tenderness to his abdomen. No bowel movement since discharge. It is incompletely certain at the time of the patient's arrival whether his symptoms represent constipation versus an acute surgical process or peritonitis. Workup including IV contrast-enhanced CT scan ordered. Patient will be offered analgesics and closely observed. Labs pending I attest to directly supervising ECG interpretation by the resident physician.
--- NOTE | 2018-08-04 16:39 | Emergency Department Note ---
Disposition Clinical Impression: Post-op pain, SBO (small bowel obstruction), Ileus Abdominal pain Qualifiers: Abdominal location: generalized Qualified Code(s): R10.84 - Generalized abdominal pain Disposition: Admitted As Inpatient Condition: Fair Referrals: NONE,PCP [Primary Care Provider] - Forms: ED Satisfaction Letter, Work/School Release Time of Disposition: 18:16 Abdominal Pain HPI - General Chief Complaint: ED Abdominal Pain Stated Complaint: post op complications Time Seen by Provider: 08/04/18 16:23 Source: patient, EMS Mode of arrival: EMS Limitations: no limitations Nursing Notes Reviewed: Yes Vital Signs Reviewed: Yes - History of Present Illness HPI Narrative: Patient is a 37-year-old male with past medical history of appendectomy [address] Ballard. He states that he was sent home the next day with pain control and stool softeners. He has been taking Percocet as prescribed as needed for pain control. Today, he states that he has generalized abdominal pain that is severe, states that he has not had a bowel movement since his surgery. He does report that he has been able to urinate, denies any dysuria or hematuria. Denies any nausea, vomiting, fevers, any other diarrhea. Denies chest pain, productive cough, shortness breath. He states that his Percocet is not helping with the pain at this time and he feels as though his abdomen is firm. Pain Scale: 10 - Related Data Previous Rx's Medication Instructions Recorded Docusate [Colace] 100 mg PO BID 14 Days #28 capsule 08/03/18 Ibuprofen 800 mg PO Q8H 10 Days #30 tablet 08/03/18 OxyCODONE/APAP 5/325 [Percocet 1 each PO Q6HR PRN 3 Days #12 08/03/18 5/325 MG] tablet Allergies Allergy/AdvReac Type Severity Reaction Status Date / Time No Known Allergies Allergy Verified 08/02/18 19:56 All systems ED: reviewed and negative except as stated. Constitutional: Denies: fever Cardiovascular: Denies: chest pain Respiratory: Denies: cough, dyspnea, sputum production Gastrointestinal: Reports: abdominal pain, constipation. Denies: nausea, vomiting, diarrhea, hematemesis, melena, hematochezia Genitourinary: Denies: dysuria, hematuria Abdominal Pain PMH - Past Medical History Medical history: Reports: no medical history Male Surgical History: Reports: appendectomy, orthopedic, other Psychiatric history: Reports: no psych history - Social History Smoking status: Current every day smoker Alcohol use: Reports: none Drug use: Reports: none Physical Exam - General Limitations: no limitations General appearance: alert, other (Appears to be uncomfortable and in pain, anxious) - Head Head exam: atraumatic, normocephalic, normal inspection - Eye Eye exam: Present: normal appearance, PERRL, EOMI - ENT ENT exam: normal exam, normal oropharynx, mucous membranes moist - Neck Neck exam: Present: normal inspection, full ROM, trachea midline - Chest Chest inspection: Present: normal inspection, symmetric chest wall rise - Respiratory Respiratory exam: Present: normal lung sounds bilaterally - Cardiovascular Cardiovascular exam: Present: regular rate, normal rhythm, normal heart sounds - Abdominal Exam Abdominal exam: Present: tenderness (Generalized tenderness of the abdomen. Mild firmness of the abdomen. Port site dressings appeared to be clean, dry, intact with no evidence of any localized cellulitis or pus drainage.), guarding (generalized voluntary) - Extremities Exam Extremities exam: Present: normal inspection, full ROM. Absent: tenderness, pedal edema - Neurological Exam Neurological exam: Present: alert, oriented X3 - Psychiatric Psychiatric exam: Present: anxious - Skin Skin exam: Present: warm, dry, intact, normal color. Absent: rash Course Course Narrative: Abdominal exam shows moderate generalized tenderness, mild generalized firmness and mild generalized distention. No obvious infectious signs regarding port sites. With history of recent surgery and no bowel movement for 2 days, currently concern for constipation versus bowel suction versus infectious peritonitis. We will obtain basic labs, lactic, blood cultures, we will go ahead and get the patient fentanyl and Toradol for pain control, 1 L normal saline bolus. We will also perform CT the abdomen and pelvis with contrast for further assessment. 18:15 no elevation white blood cell count. No major lab abnormality. Lactic acid within normal limits. Blood cultures are pending. Patient is reassessed. He is still having a lot of pain on reexamination of his abdomen. He was still distended and tender to light palpation. CT abdomen and pelvis shows no evidence of any abscess but there is fluid distention of the small bowel throughout the abdomen suggesting ileus versus partial small bowel suction. There is also a reading note of thickening of the terminal ileum that may sugg est side of inflammatory bowel disease. However, according to the operative note, patient did have evidence of inflamed appendix during surgery. We will give the patient an additional 1 mg of Dilaudid for further pain control. Vitals remained stable at this time. I discussed the case with Dr. Weber who has accepted the patient under his service for further care and pain control. He has requested an 18-gauge [place] NG tube to be placed. This was discussed with the patient and he was agreeable with this plan. Abdomen/Pelvis CT 08/04/18 16:30 IMPRESSION: 1. Interval postsurgical changes of an appendectomy without evidence of an abscess. 2. Progressive diffuse fluid distention of small bowel throughout the abdomen. Findings again may reflect an ileus, partial small bowel obstruction or an enteritis. There is again noted to be a suggestion of wall thickening of the terminal ileum, correlate for signs or symptoms of inflammatory bowel disease. 3. Small amount of intraperitoneal gas likely related to recent appendectomy. D/ / 08/04/2018 18:06:11 Qamar Reyna / nadia Interpreting Provider: Qamar Reyna Vital Signs Temperature 99.2 F 08/04/18 16:27 Pulse Rate 79 08/04/18 16:27 Respiratory Rate 18 08/04/18 16:27 Blood Pressure 127/79 08/04/18 16:27 O2 Sat by Pulse Oximetry 98 08/04/18 16:27 Temperature 99.2 F 08/04/18 16:27 Pulse Rate 85 08/04/18 17:19 Respiratory Rate 18 08/04/18 17:19 Blood Pressure 120/81 08/04/18 17:19 O2 Sat by Pulse Oximetry 93 08/04/18 17:19 Oxygen Delivery Oxygen Delivery Room Air Abdominal Pain - MDM Narrative Medical decision making narrative: Abdominal exam shows moderate generalized tenderness, mild generalized firmness and mild generalized distention. No obvious infectious signs regarding port sites. With history of recent surgery and no bowel movement for 2 days, currently concern for constipation versus bowel suction versus infectious peritonitis. We will obtain basic labs, lactic, blood cultures, we will go ahead and get the patient fentanyl and Toradol for pain control, 1 L normal saline bolus. We will also perform CT the abdomen and pelvis with contrast for further assessment. 18:15 no elevation white blood cell count. No major lab abnormality. Lactic acid within normal limits. Blood cultures are pending. Patient is reassessed. He is still having a lot of pain on reexamination of his abdomen. He was still distended and tender to light palpation. CT abdomen and pelvis shows no evidence of any abscess but there is fluid distention of the small bowel throughout the abdomen suggesting ileus versus partial small bowel suction. There is also a reading note of thickening of the terminal ileum that may suggest side of inflammatory bowel disease. However, according to the operative note, patient did have evidence of inflamed appendix during surgery. We will give the patient an additional 1 mg of Dilaudid for further pain control. Vitals remained stable at this time. I discussed the case with Dr. Weber who has accepted the patient under his service for further care and pain control. He has requested an 18-gauge [place] NG tube to be placed. This was discussed with the patient and he was agreeable with this plan. - Medical Records Medical records reviewed: Yes I reviewed the patient's medical records. - Lab Data Lab results reviewed: Yes I reviewed the patient's lab results. Result diagrams: 08/04/18 16:45 08/04/18 16:45 Lab Results 08/04/18 08/04/18 08/04/18 Range/Units 16:41 16:45 16:45 WBC 9.8 (4.3-11.1) K/mcL RBC 4.57 (4.19-5.50) M/mcL Hgb 13.1 D (12.9-16.9) g/dL Hct 39.7 (37.5-50.1) % MCV 86.9 (83.0-100.0) fL MCH 28.7 (28.0-33.3) pg MCHC 33.0 (31.6-35.5) g/dL RDW 13.3 (11.5-14.5) % Plt Count 278 (140-400) K/mcL MPV 9.6 (9.4-12.4) fL Immature Gran % 0.4 (0-4) % Seg Neutrophils % 75.4 % Lymphocytes % 14.1 % Monocytes % 9.4 % Eosinophils % 0.5 % Basophils % 0.2 % Neutrophils # 7.4 (1.6-8.9) K/mcL Lymphocytes # 1.4 (0.6-4.6) K/mcL Monocytes # 0.9 (0.0-1.3) K/mcL Eosinophils # 0.1 (0.0-0.6) K/mcL Basophils # 0.0 (0.0-0.2) K/mcL Clumped Platelets Few A (Not Present) Sodium 134 L (136-145) mEq/L Potassium 4.0 (3.5-5.1) mEq/L Chloride 101 (98-107) mEq/L Carbon Dioxide 25 (23-29) mEq/L BUN 10 (6-20) mg/dL Creatinine 0.71 (0.70-1.30) mg/dL Est GFR ( Amer) > 60 (> 60) Est GFR (Non-Af Amer) > 60 (> 60) BUN/Creatinine Ratio 14 (6-26) Glucose 113 H (70-105) mg/dL Calculated Osmolality 278 L (280-300) Lactic Acid 1.0 (0.5-2.2) mmol/L Calcium 8.6 (8.6-10.3) mg/dL Total Bilirubin 0.4 (0.3-1.0) mg/dL Direct Bilirubin 0.1 (0.0-0.2) mg/dL Indirect Bilirubin 0.3 (0.0-1.2) mg/dL AST 23 (13-39) Units/L ALT 24 (7-52) Units/L Alkaline Phosphatase 47 (34-104) Units/L Serum Total Protein 6.4 (6.4-8.9) g/dL Albumin 3.4 L (3.5-5.7) g/dL Globulin 3.0 (2.4-3.5) g/dL Albumin/Globulin Ratio 1.1 (1.1-2.2) - Radiology Data Radiology results reviewed: Yes I reviewed the patient's radiology results. Abdomen/Pelvis CT 08/04/18 16:30 IMPRESSION: 1. Interval postsurgical changes of an appendectomy without evidence of an abscess. 2. Progressive diffuse fluid distention of small bowel throughout the abdomen. Findings again may reflect an ileus, partial small bowel obstruction or an enteritis. There is again noted to be a suggestion of wall thickening of the terminal ileum, correlate for signs or symptoms of inflammatory bowel disease. 3. Small amount of intraperitoneal gas likely related to recent appendectomy. D/ / 08/04/2018 18:06:11 Qamar Reyna / nadia Interpreting Provider: Qamar Butts Situation: Demographics, MOA Background: Presenting Complaint, Relevant PMH, Meds, & Allergies Assessment: Vital Signs, Course and respsone to treatment, Exam Concerns, Patient/Family Expectation, Pertinant Lab Results Recommendation: Barrier(s) to disposition, Recommendation based on pending studies, treatments, or consults Beckie Report Given to: Dr. Gus Butts Repor Time: 18:16
[2018-08-04 17:04] LABS: Basophils % 0.2 %; Eosinophils # 0.1 K/mcL (0.0-0.6); Eosinophils % 0.5 %; Hematocrit 39.7 % (37.5-50.1); Immature Granulocytes % 0.4 % (0-4); Lymphocytes # 1.4 K/mcL (0.6-4.6); Lymphocytes % 14.1 %; Mean Corpuscular Hemoglobin 28.7 pg (28.0-33.3); Mean Corpuscular Volume 86.9 fL (83.0-100.0); Mean Platelet Volume 9.6 fL (9.4-12.4); Monocytes # 0.9 K/mcL (0.0-1.3); Monocytes % 9.4 %; Neutrophils # 7.4 K/mcL (1.6-8.9); Platelet Count 278 K/mcL (140-400); Red Blood Count 4.57 M/mcL (4.19-5.50); Red Cell Distribution Width 13.3 % (11.5-14.5); Segmented Neutrophils % 75.4 %
[2018-08-04 17:27] LABS: Alanine Aminotransferase 24 Units/L (7-52); Albumin 3.4 g/dL (3.5-5.7); Albumin/Globulin Ratio 1.1 (1.1-2.2); Alkaline Phosphatase 47 Units/L (34-104); Aspartate Amino Transferase 23 Units/L (13-39); BUN/Creatinine Ratio 14 (6-26); Bilirubin,Direct 0.1 mg/dL (0.0-0.2); Bilirubin,Indirect 0.3 mg/dL (0.0-1.2); Bilirubin,Total 0.4 mg/dL (0.3-1.0); Blood Urea Nitrogen 10 mg/dL (6-20); Calcium 8.6 mg/dL (8.6-10.3); Carbon Dioxide 25 mEq/L (23-29); Chloride 101 mEq/L (98-107); Glucose 113 mg/dL (70-105); Osmolality,Calculated 278 (280-300); Sodium 134 mEq/L (136-145); Total Protein 6.4 g/dL (6.4-8.9); eGFR For Non-African Americans > 60 (> 60)
[2018-08-04 17:33] LABS: Hemoglobin 13.1 g/dL (12.9-16.9)
[2018-08-04 17:34] LABS: Platelet Clumps Few (Not Present)
[2018-08-04] MEDS ORDERED: Naloxone 0.4 MG/ML INJ IVP PRN ×2 (18:14)
[2018-08-04] MEDS ORDERED: OXYCODONE Oral CONC 10 MG/0.5 ML ORAL.SYG SL PRN (18:14)
[2018-08-04] MEDS ORDERED: Ketorolac 15 MG/ML VIAL IVP PRN (18:14)
[2018-08-04] MEDS ORDERED: Ondansetron ODT 4 MG TAB.RAPDIS SL PRN (18:14)
[2018-08-04] MEDS ORDERED: 0.9 % Sodium Chloride 1,000 ML IVC SCH (18:15)
[2018-08-04] MEDS ORDERED: *HR* HYDROmorphone (PF) 1 MG/ML SYRINGE IVP ONE (18:20)
[2018-08-04 20:18] VITALS: BP 107/66
--- NOTE | 2018-08-04 20:26 | Acute Care Surgery H&P ---
Date of Encounter: 08/04/18 Time of Encounter: 20:24 Assessment and Plan (1) Ileus Current Visit: Yes Status: Acute 37M pOD #2 s/p lap appy, now with ileus; NPO IVF Ng tube replace electrolytes activity as tolerated await return of bowel function The assessment and plan as outlined above was discussed with the patient and/or family members who expressed understanding and agreement. All questions were answered. History of Present Illness Chief complaint: abdominal distension, pain HPI: Mr. Beckett is a 37 year old male who is POD #2 s/p lap appy, discharge on POD #1 who presents with abdominal distension, pain at his incision sites. He met discharge criteria and was tolerating a diet once he got home, but he then began experiencing worsening abdominal distension then pain. No reports of fevers, chills, nausea, vomiting. Due to the progression of his symptoms, he presented to the ED for further evaluation. A CT scan was obtained which demonstrated dilated bowel loops. No identifiable transition point. Of note, the patient began having flatus during the interview. Past Med Surg Social Fam HX - Past Medical History Medical history: no medical history Psychiatric history: no psych history - Past Surgical History Additional surgical history: right ankle sx - Social History Smoking Status: Current every day smoker Alcohol use: none Drug use: none - Family History Father Living Status: Still Living Hx Family Endocrine Disorder: Yes (diabetes) Mother Living Status: Hx Family Cancer: Yes (brain cancer) Medications and Allergies Docusate [Colace] 100 mg PO BID 14 Days #28 capsule 08/03/18 [Rx] Ibuprofen 800 mg PO Q8H 10 Days #30 tablet 08/03/18 [Rx] OxyCODONE/APAP 5/325 [Percocet 5/325 MG] 1 each PO Q6HR PRN 3 Days #12 tablet 08/03/18 [Rx] Allergy/AdvReac Type Severity Reaction Status Date / Time No Known Allergies Allergy Verified 08/02/18 19:56 Review of Systems All systems PM: 12 point ROS negative besides HPI findings General Surgery Exam Initial Vital Signs Temp Pulse Resp BP Pulse Ox 99.2 F 79 18 127/79 98 08/04/18 16:27 08/04/18 16:27 08/04/18 16:27 08/04/18 16:27 08/04/18 16:27 - General physical appearance no distress - Eyes normal ocular movement - ENT normocephalic - Neck trachea midline, no lymphadectomy - Respiratory normal expansion, normal respiratory effort - Cardiovascular Cardiovascular exam: Present: RRR - Abdomen Abdomen general surgery: Present: soft, distended, tender - Incision Incision: Present: clean and dry, intact - Integumentary Integumentary general surgery: Present: warm and dry - Neurologic Present: CN 2-12 grossly intact - Musculoskeletal Present: normal posture - Psychiatric Psychiatric general surgery: Present: A&Ox3 Results - Labs 08/04/18 16:45 08/04/18 16:45 Abnormal lab results Clumped Platelets Few (Not Present) A 08/04/18 16:45 Sodium 134 mEq/L (136-145) L 08/04/18 16:45 Glucose 113 mg/dL (70-105) H 08/04/18 16:45 Calculated Osmolality 278 (280-300) L 08/04/18 16:45 Albumin 3.4 g/dL (3.5-5.7) L 08/04/18 16:45 Diabetes panel 08/04/18 Range/Units 16:45 Sodium 134 L (136-145) mEq/L Potassium 4.0 (3.5-5.1) mEq/L Chloride 101 (98-107) mEq/L Carbon Dioxide 25 (23-29) mEq/L BUN 10 (6-20) mg/dL Creatinine 0.71 (0.70-1.30) mg/dL Glucose 113 H (70-105) mg/dL Calcium 8.6 (8.6-10.3) mg/dL AST 23 (13-39) Units/L ALT 24 (7-52) Units/L Alkaline Phosphatase 47 (34-104) Units/L Albumin 3.4 L (3.5-5.7) g/dL Calcium panel 08/04/18 Range/Units 16:45 Calcium 8.6 (8.6-10.3) mg/dL Albumin 3.4 L (3.5-5.7) g/dL Pituitary panel 08/04/18 Range/Units 16:45 Sodium 134 L (136-145) mEq/L Potassium 4.0 (3.5-5.1) mEq/L Chloride 101 (98-107) mEq/L Carbon Dioxide 25 (23-29) mEq/L BUN 10 (6-20) mg/dL Creatinine 0.71 (0.70-1.30) mg/dL Glucose 113 H (70-105) mg/dL Calcium 8.6 (8.6-10.3) mg/dL Adrenal panel 08/04/18 Range/Units 16:45 Sodium 134 L (136-145) mEq/L Potassium 4.0 (3.5-5.1) mEq/L Chloride 101 (98-107) mEq/L Carbon Dioxide 25 (23-29) mEq/L BUN 10 (6-20) mg/dL Creatinine 0.71 (0.70-1.30) mg/dL Glucose 113 H (70-105) mg/dL Calcium 8.6 (8.6-10.3) mg/dL Total Bilirubin 0.4 (0.3-1.0) mg/dL AST 23 (13-39) Units/L ALT 24 (7-52) Units/L Alkaline Phosphatase 47 (34-104) Units/L Albumin 3.4 L (3.5-5.7) g/dL All other labs normal. - Imaging CT scan - abdomen: report reviewed, image reviewed CT scan - pelvis: report reviewed, image reviewed
--- NOTE | 2018-08-04 22:44 | Discharge Summary ---
Orders not resulted at time of discharge: Pending orders 08/04/18 16:41 Culture,Blood [BC] Stat 08/05/18 04:00 Basic Metabolic Panel AM 0400 Complete Blood Count [HEME] AM 0400 Magnesium AM 0400 Phosphorous AM 0400 Date of Encounter: 08/04/18 Time of Encounter: 22:40 - Discharge Diagnosis (1) Ileus Priority: Primary Status: Acute Comments: discussed with patient in the emergency the anticipated hospital course including that it may take 24-72 hrs for resolution. I also discussed with him about placement of an NG tube to help with decompression/symptomatic relief from the abdominal distension. no obvious obstruction on CT, appeared to be more consistent with an ileus. Shortly after arriving to the floor the patient states he wishes to be transferred to home because he expected resolution sooner than now. I did remind him that he just arrived to the floor, but he was insistent on transfer. I also let him know that he will likely get the same management strategy. he was still insistent on wanting to be discharged. General Surgery Exam Initial Vital Signs Temp Pulse Resp BP Pulse Ox 99.2 F 79 18 127/79 98 08/04/18 16:27 08/04/18 16:27 08/04/18 16:27 08/04/18 16:27 08/04/18 16:27 - General physical appearance no distress - Respiratory normal expansion, normal respiratory effort - Cardiovascular Cardiovascular exam: Present: RRR - Abdomen Abdomen general surgery: Present: soft, tender (appropriatley tender) - Incision Incision: Present: clean and dry, intact - Integumentary Integumentary general surgery: Present: warm and dry - Neurologic Present: CN 2-12 grossly intact - Musculoskeletal Present: normal posture - Psychiatric Psychiatric general surgery: Present: A&Ox3 - Hospital Course Hospital course: Mr. Beckett is a 37 year old male - Time Spent with Patient Total time spent providing and/or coordinating discharge services: - Discharge Medications Prescriptions: No Action Docusate [Colace] 100 mg PO BID 14 Days #28 capsule Ibuprofen 800 mg PO Q8H 10 Days #30 tablet OxyCODONE/APAP 5/325 [Percocet 5/325 MG] 1 each PO Q6HR PRN 3 Days #12 tablet PRN Reason: Pain Home Medications: Docusate [Colace] 100 mg PO BID 14 Days #28 capsule 04/12/19 [Rx] Ibuprofen 800 mg PO Q8H 10 Days #30 tablet 08/03/18 [Rx] OxyCODONE/APAP 5/325 [Percocet 5/325 MG] 1 each PO Q6HR PRN 3 Days #12 tablet 08/03/18 [Rx] Allergies/Adverse Reactions: Allergy/AdvReac Type Severity Reaction Status Date / Time No Known Allergies Allergy Verified 08/02/18 19:56 Date of admission: 08/04/18 19:42 Primary care physician: PCP NONE Discharging clinician: Pedro Weber Anticipated date of discharge: 08/04/18 Labs on day of discharge: Labs from last 24 hours 08/04/18 08/04/18 08/04/18 21:01 16:45 16:45 WBC 9.8 RBC 4.57 Hgb 13.1 D Hct 39.7 MCV 86.9 MCH 28.7 MCHC 33.0 RDW 13.3 Plt Count 278 MPV 9.6 Immature Gran % 0.4 Seg Neutrophils % 75.4 Lymphocytes % 14.1 Monocytes % 9.4 Eosinophils % 0.5 Basophils % 0.2 Neutrophils # 7.4 Lymphocytes # 1.4 Monocytes # 0.9 Eosinophils # 0.1 Basophils # 0.0 Clumped Platelets Few A Sodium 134 L Potassium 4.0 Chloride 101 Carbon Dioxide 25 BUN 10 Creatinine 0.71 Est GFR ( Amer) > 60 Est GFR (Non-Af Amer) > 60 BUN/Creatinine Ratio 14 Glucose 113 H Calculated Osmolality 278 L Lactic Acid 0.5 Calcium 8.6 Total Bilirubin 0.4 Direct Bilirubin 0.1 Indirect Bilirubin 0.3 AST 23 ALT 24 Alkaline Phosphatase 47 Serum Total Protein 6.4 Albumin 3.4 L Globulin 3.0 Albumin/Globulin Ratio 1.1 08/04/18 16:41 WBC RBC Hgb Hct MCV MCH MCHC RDW Plt Count MPV Immature Gran % Seg Neutrophils % Lymphocytes % Monocytes % Eosinophils % Basophils % Neutrophils # Lymphocytes # Monocytes # Eosinophils # Basophils # Clumped Platelets Sodium Potassium Chloride Carbon Dioxide BUN Creatinine Est GFR ( Amer) Est GFR (Non-Af Amer) BUN/Creatinine Ratio Glucose Calculated Osmolality Lactic Acid 1.0 Calcium Total Bilirubin Direct Bilirubin Indirect Bilirubin AST ALT Alkaline Phosphatase Serum Total Protein Albumin Globulin Albumin/Globulin Ratio Preliminary micro results at discharge 08/04/18 16:41 Blood Culture - Preliminary Peripheral Venipuncture Culture is incubating and being continuously monitored for growth. Final report to follow. 08/04/18 16:45 Blood Culture - Preliminary Peripheral Venipuncture Culture is incubating and being continuously monitored for growth. Final report to follow. - Impressions ITS Impressions Abdomen/Pelvis CT 08/04/18 16:30 IMPRESSION: 1. Interval postsurgical changes of an appendectomy without evidence of an abscess. 2. Progressive diffuse fluid distention of small bowel throughout the abdomen. Findings again may reflect an ileus, partial small bowel obstruction or an enteritis. There is again noted to be a suggestion of wall thickening of the terminal ileum, correlate for signs or symptoms of inflammatory bowel disease. 3. Small amount of intraperitoneal gas likely related to recent appendectomy. Results were called by Dr. Qamar Reyna to Dr. Alatorre On 08/04/2018 at 18:17. D/ / 08/04/2018 18:06:11 Qamar Reyna / nadia Interpreting Provider: Qamar Reyna - Patient Status Disposition: Home, Self-Care Condition: Fair Functional capacity at discharge: independent ambulation - Discharge Instructions Follow Up With: NONE,PCP [Primary Care Provider] - Megan Rider [Partnered Physician] - 09/04/18 8:00 am - Diet and Activity Activity: increase activity as tolerated Diet: advance to your usual diet
[2018-08-05] MEDS ORDERED: *HR* Enoxaparin 40 MG/0.4 ML SYRINGE SQ SCH (06:00)
== END 2018-08-04 23:41 | disposition left against medical advice (07) | DRG 390 ==
LOC: EMEROOARM 16:22 → 3ANU 16:22
PROVIDERS: ADMIT Surgery; ATTEND Surgery